=== PATIENT | female | born 1975 | race Caucasian/White ===

== ENCOUNTER 2021-03-08 01:23 | Emergency (ER) | payer OTHER ==
[~2021-03-08] VITALS: Ht 157.5 cm; Wt 61.2 kg
[~2021-03-08 01:23] MED LIST: CEPH500 PO; CIPR250 PO; HYDACE5 PO; NAPR500 PO; OXYACE5T PO; PENVK500 PO; POTCHL20ER PO; PRED20 PO; PROC5 PO
== END 2021-03-08 02:22 | disposition home or self-care (01) ==
LOC: ER 01:23
DX: T40.1X1A Poisoning by heroin, accidental (unintentional), initial encounter (principal)
CPT/HCPCS: 99284; A9270

== ENCOUNTER 2023-11-21 11:44 | Emergency (ER) | payer OTHER ==
[~2023-11-21] VITALS: Ht 157.5 cm; Wt 74.8 kg
[2023-11-21 12:05] VITALS: BP 139/92
[2023-11-21] MEDS ORDERED: Methadone HCL 10 MG TAB PO ONE (12:30)
== END 2023-11-21 13:10 | disposition home or self-care (01) ==
LOC: ER 11:44
DX: F11.90 Opioid use, unspecified, uncomplicated (principal); Z76.0 Encounter for issue of repeat prescription
CPT/HCPCS: 99281; A9270

== ENCOUNTER 2023-11-30 23:41 | Emergency (ER) | payer OTHER ==
[~2023-11-30] VITALS: Ht 157.5 cm; Wt 72.6 kg
[2023-12-01 00:37] VITALS: BP 152/95
== END 2023-12-01 00:39 | disposition home or self-care (01) ==
LOC: ER 23:41
DX: Z76.0 Encounter for issue of repeat prescription (principal)
CPT/HCPCS: 99281

== ENCOUNTER 2023-12-05 11:55 | Emergency (ER) | payer OTHER ==
[~2023-12-05] VITALS: Ht 157.5 cm; Wt 74.8 kg
[2023-12-05 12:21] VITALS: BP 132/90
[2023-12-05] MEDS ORDERED: METH40 PO (12:22)
[2023-12-05] MEDS ORDERED: Methadone HCL 10 MG TAB PO ONE (12:30)
== END 2023-12-05 12:54 | disposition home or self-care (01) ==
LOC: ER 11:55
DX: Z76.0 Encounter for issue of repeat prescription (principal)
CPT/HCPCS: 99281; A9270

== ENCOUNTER 2023-12-18 17:46 | Emergency (ER) | payer OTHER ==
[~2023-12-18] VITALS: Ht 157.5 cm; Wt 74.8 kg
[~2023-12-18 17:46] MED LIST changes: +METH40 PO
[2023-12-18 18:07] VITALS: BP 164/94
[2023-12-18] MEDS ORDERED: Methadone HCL 10 MG TAB PO ONE (18:15)
== END 2023-12-18 18:41 | disposition home or self-care (01) ==
LOC: ER 17:46
DX: Z76.0 Encounter for issue of repeat prescription (principal); Z79.899 Other long term (current) drug therapy; R06.02 Shortness of breath; R07.9 Chest pain, unspecified; R10.9 Unspecified abdominal pain
CPT/HCPCS: 99281; A9270

== ENCOUNTER 2024-01-18 13:39 | Emergency (ER) | payer OTHER ==
[~2024-01-18] VITALS: Ht 157.5 cm; Wt 77.1 kg
[2024-01-18 13:51] VITALS: BP 122/90
[2024-01-18] MEDS ORDERED: Methadone HCL 10 MG TAB PO ONE (14:00)
== END 2024-01-18 15:21 | disposition home or self-care (01) ==
LOC: ER 13:39
DX: F11.90 Opioid use, unspecified, uncomplicated (principal); Z76.0 Encounter for issue of repeat prescription; Z79.899 Other long term (current) drug therapy
CPT/HCPCS: 99281; A9270

== ENCOUNTER 2024-02-06 13:29 | Emergency (ER) | payer OTHER ==
[~2024-02-06] VITALS: Ht 157.5 cm; Wt 74.8 kg
[2024-02-06 13:38] VITALS: BP 128/84
[2024-02-06] MEDS ORDERED: Methadone HCL 10 MG TAB PO ONE (14:00)
== END 2024-02-06 14:33 | disposition home or self-care (01) ==
LOC: ER 13:29
DX: Z76.89 Persons encountering health services in other specified circumstances (principal); Z79.891 Long term (current) use of opiate analgesic; Z59.89 Other problems related to housing and economic circumstances
CPT/HCPCS: 99281; A9270

== ENCOUNTER 2024-03-21 16:34 | Emergency (ER) | payer OTHER ==
[~2024-03-21] VITALS: Ht 157.5 cm; Wt 83.9 kg
[2024-03-21 16:46] VITALS: BP 132/84
[2024-03-21] MEDS ORDERED: Methadone HCL 10 MG TAB PO ONE (16:55)
== END 2024-03-21 17:19 | disposition home or self-care (01) ==
LOC: ER 16:34
DX: F11.90 Opioid use, unspecified, uncomplicated (principal); Z76.0 Encounter for issue of repeat prescription; Z79.899 Other long term (current) drug therapy
CPT/HCPCS: 99281

== ENCOUNTER 2024-04-08 15:22 | Emergency (ER) | payer OTHER ==
[~2024-04-08] VITALS: Ht 157.5 cm; Wt 79.4 kg
[2024-04-08 15:41] VITALS: BP 143/89
[2024-04-08] MEDS ORDERED: Methadone HCL 10 MG TAB PO ONE (16:00)
== END 2024-04-08 16:23 | disposition home or self-care (01) ==
LOC: ER 15:22
DX: F11.91 Opioid use, unspecified, in remission (principal); Z76.0 Encounter for issue of repeat prescription
CPT/HCPCS: 99281; A9270

== ENCOUNTER 2024-04-09 16:38 | Emergency (ER) | payer OTHER ==
[~2024-04-09] VITALS: Ht 157.5 cm; Wt 90.0 kg
[2024-04-09 16:42] VITALS: BP 148/98
[2024-04-09] MEDS ORDERED: Methadone HCL 10 MG TAB PO ONE (17:55)
== END 2024-04-09 18:21 | disposition home or self-care (01) ==
LOC: ER 16:38
DX: Z76.89 Persons encountering health services in other specified circumstances (principal); F11.21 Opioid dependence, in remission
CPT/HCPCS: 99281; A9270

== ENCOUNTER 2024-04-18 14:49 | Emergency (ER) | payer OTHER ==
[~2024-04-18] VITALS: Ht 157.5 cm; Wt 79.4 kg
[2024-04-18 15:20] VITALS: BP 135/92
[2024-04-18] MEDS ORDERED: Methadone HCL 10 MG TAB PO ONE (15:55)
== END 2024-04-18 16:32 | disposition home or self-care (01) ==
LOC: ER 14:49
DX: Z76.89 Persons encountering health services in other specified circumstances (principal); F11.20 Opioid dependence, uncomplicated
CPT/HCPCS: 99281; A9270

== ENCOUNTER 2024-05-03 17:36 | Emergency (ER) | payer OTHER ==
[~2024-05-03] VITALS: Ht 162.6 cm; Wt 59.0 kg
[2024-05-03 18:07] VITALS: BP 126/98
[2024-05-03] MEDS ORDERED: Methadone HCL 10 MG TAB PO ONE (18:55)
== END 2024-05-03 19:15 | disposition home or self-care (01) ==
LOC: ER 17:36
DX: F11.91 Opioid use, unspecified, in remission (principal); Z76.0 Encounter for issue of repeat prescription; Z79.899 Other long term (current) drug therapy
CPT/HCPCS: 99281; A9270

== ENCOUNTER 2024-05-28 17:18 | Emergency (ER) | payer OTHER ==
[~2024-05-28] VITALS: Ht 157.5 cm; Wt 74.8 kg
[2024-05-28 17:27] VITALS: BP 153/95
[2024-05-28] MEDS ORDERED: Methadone HCL 10 MG TAB PO ONE (18:40)
== END 2024-05-28 18:59 | disposition home or self-care (01) ==
LOC: ER 17:18
DX: Z76.89 Persons encountering health services in other specified circumstances (principal); Z79.899 Other long term (current) drug therapy
CPT/HCPCS: 99281; A9270

== ENCOUNTER 2024-06-14 12:25 | Emergency (ER) | payer OTHER ==
[~2024-06-14] VITALS: Ht 157.5 cm; Wt 81.7 kg
[2024-06-14 12:42] VITALS: BP 155/95
[2024-06-14] MEDS ORDERED: Methadone HCL 10 MG TAB PO ONE (13:25)
== END 2024-06-14 14:18 | disposition home or self-care (01) ==
LOC: ER 12:25
DX: Z76.0 Encounter for issue of repeat prescription (principal); F11.90 Opioid use, unspecified, uncomplicated
CPT/HCPCS: 99281; A9270

== ENCOUNTER 2024-06-21 17:53 | Emergency (ER) | payer OTHER ==
[~2024-06-21] VITALS: Ht 167.6 cm; Wt 90.7 kg
[2024-06-21 18:12] VITALS: BP 163/111
[2024-06-21] MEDS ORDERED: Methadone HCL 10 MG TAB PO ONE (18:20)
== END 2024-06-21 18:42 | disposition other institution (70) ==
LOC: ER 17:53
DX: F19.10 Other psychoactive substance abuse, uncomplicated (principal); Z76.0 Encounter for issue of repeat prescription; Z79.891 Long term (current) use of opiate analgesic
CPT/HCPCS: 99281; A9270

== ENCOUNTER 2024-06-28 18:25 | Emergency (ER) | payer OTHER ==
[~2024-06-28] VITALS: Ht 157.5 cm; Wt 79.4 kg
[2024-06-28 18:31] VITALS: BP 151/93
[2024-06-28] MEDS ORDERED: Methadone HCL 10 MG TAB PO ONE (19:10)
== END 2024-06-28 19:29 | disposition home or self-care (01) ==
LOC: ER 18:25
DX: Z76.0 Encounter for issue of repeat prescription (principal)
CPT/HCPCS: 99281; A9270

== ENCOUNTER 2024-08-01 11:34 | Emergency (ER) | payer OTHER ==
[~2024-08-01] VITALS: Ht 157.5 cm; Wt 83.9 kg
[2024-08-01 12:00] VITALS: BP 140/98
[2024-08-01] MEDS ORDERED: Methadone HCL 10 MG TAB PO ONE (12:00)
[2024-08-01 12:37] LABS: BASOPHILS ABSOLUTE AUTO 0.08 K/mm3 (0.00-0.23); BASOPHILS PERCENT AUTO 1 % (0-2); EOSINOPHILS PERCENT AUTO 2 % (0-6); Hematocrit 34.1 % (33.0-51.0); Hemoglobin 10.9 g/dL (11.5-16.0); IMMATURE GRAN ABSOLUTE AUTO 0.05 K/mm3 (0.00-0.10); IMMATURE GRAN PERCENT AUTO 0 % (0-1); LYMPHOCYTES ABSOLUTE AUTO 1.62 K/mm3 (0.84-5.20); LYMPHOCYTES PERCENT AUTO 13 % (21-46); MONOCYTES ABSOLUTE AUTO 1.23 K/mm3 (0.16-1.47); MONOCYTES PERCENT AUTO 10 % (4-13); Mean Corpuscular HGB 26.8 pg (26.0-34.0); Mean Corpuscular Volume 84 fL (80-100); Mean Platelet Volume 10.3 fL (9.1-12.4); NEUTROPHILS PERCENT AUTO 74 % (41-73); Platelet Count 374 K/mm3 (150-400); RDW Coefficient Variation 14.8 % (11.7-14.2); Red Blood Cell Count 4.06 M/mm3 (3.80-5.20); White Blood Cell Count 12.38 K/mm3 (4.00-11.30)
[2024-08-01 13:05] LABS: Albumin, Blood 3.2 g/dL (3.4-5.0); Albumin/Globulin Ratio 0.7 (0.8-1.8); Bilirubin, Total 0.5 mg/dL (0.1-1.0); Bun/Creatinine Ratio 21.5 (12.0-20.0); Calcium, Blood 8.8 mg/dL (8.5-10.1); Creatinine, Blood 0.84 mg/dL (0.40-1.00); Globulin, Blood 4.3 g/dL (2.2-4.0); Potassium, Blood 3.6 mmol/L (3.5-5.5); Total Protein, Blood 7.5 g/dL (6.4-8.2)
[2024-08-01] MEDS ORDERED: K-TAB ER20 ME1 PO (14:07)
[2024-08-01] MEDS ORDERED: Lasix20 MG PO (14:07)
== END 2024-08-01 14:18 | disposition home or self-care (01) ==
LOC: ER 11:34
PROVIDERS: Physician Assistant
DX: R60.0 Localized edema (principal); Z76.0 Encounter for issue of repeat prescription
CPT/HCPCS: 71046; 80053; 83880; 85025; 99283-25; A9270

== ENCOUNTER 2024-08-03 12:38 | Emergency (ER) | payer OTHER ==
[~2024-08-03] VITALS: Ht 157.5 cm; Wt 81.7 kg
[~2024-08-03 12:38] MED LIST changes: +K-TAB ER20 ME1 PO; +Lasix20 MG PO
[2024-08-03 13:13] VITALS: BP 132/109
[2024-08-03] MEDS ORDERED: Methadone HCL 10 MG TAB PO ONE (14:00)
== END 2024-08-03 14:08 | disposition home or self-care (01) ==
LOC: ER 12:38
DX: F19.90 Other psychoactive substance use, unspecified, uncomplicated (principal); Z76.0 Encounter for issue of repeat prescription
CPT/HCPCS: 99281; A9270

== ENCOUNTER 2024-10-08 22:59 | Emergency (ER) | payer OTHER ==
[~2024-10-08] VITALS: Ht 157.5 cm; Wt 77.1 kg
[2024-10-08 23:08] VITALS: BP 153/96
== END 2024-10-08 23:24 | disposition home or self-care (01) ==
LOC: ER 22:59
DX: Z76.0 Encounter for issue of repeat prescription (principal); Z79.899 Other long term (current) drug therapy
CPT/HCPCS: 99281

== ENCOUNTER 2024-11-19 02:41 | Emergency (ER) | payer OTHER ==
[~2024-11-19] VITALS: Ht 157.5 cm; Wt 77.1 kg
[2024-11-19 02:44] VITALS: BP 146/94
== END 2024-11-19 02:49 | disposition home or self-care (01) ==
LOC: ER 02:41
DX: Z76.89 Persons encountering health services in other specified circumstances (principal); Z79.891 Long term (current) use of opiate analgesic; Z79.899 Other long term (current) drug therapy
CPT/HCPCS: 99281